=== PATIENT | female | born 1980 | race Caucasian/White ===

== ENCOUNTER → 2016-10-26 | Outpatient (CLI) | payer BC | END | disposition home or self-care (01) | LOC: CFH 09:05 | PROVIDERS: ATTEND Internal Medicine Cardiovascular Disease | DX: I08.1 Rheumatic disorders of both mitral and tricuspid valves (principal); Q23.0 Congenital stenosis of aortic valve; Z95.2 Presence of prosthetic heart valve | CPT/HCPCS: 93306 ==

== ENCOUNTER → 2018-07-13 | Outpatient (CLI) | payer BC, OTHER | END | disposition home or self-care (01) | LOC: CFH 07:18 | PROVIDERS: ATTEND Internal Medicine Cardiovascular Disease | DX: I08.1 Rheumatic disorders of both mitral and tricuspid valves (principal); Z87.74 Personal history of (corrected) congenital malformations of heart and circulatory system; Z95.4 Presence of other heart-valve replacement | CPT/HCPCS: 93306 ==

== ENCOUNTER 2018-09-14 15:24 | Outpatient (CLI) | payer BC, OTHER | END 2018-09-14 23:59 | disposition home or self-care (01) | LOC: CFH 15:24 | PROVIDERS: ATTEND Internal Medicine Cardiovascular Disease | DX: O00.01 Abdominal pregnancy with intrauterine pregnancy (principal); O09.519 Supervision of elderly primigravida, unspecified trimester; I08.1 Rheumatic disorders of both mitral and tricuspid valves; O99.419 Diseases of the circulatory system complicating pregnancy, unspecified trimester; Z3A.00 Weeks of gestation of pregnancy not specified | CPT/HCPCS: 93308 ==

== ENCOUNTER 2018-11-06 12:50 | Outpatient (CLI) | payer BC, OTHER | END 2018-11-06 23:59 | disposition home or self-care (01) | LOC: CFH 12:50 | PROVIDERS: ATTEND Internal Medicine Cardiovascular Disease | DX: O00.01 Abdominal pregnancy with intrauterine pregnancy (principal); O99.419 Diseases of the circulatory system complicating pregnancy, unspecified trimester; O09.519 Supervision of elderly primigravida, unspecified trimester; I51.7 Cardiomegaly; Q23.1 Congenital insufficiency of aortic valve; Z3A.00 Weeks of gestation of pregnancy not specified | CPT/HCPCS: 93306 ==

== ENCOUNTER 2019-09-10 13:25 | Outpatient (CLI) | payer BC, OTHER ==
[~2019-09-10 13:25] MED LIST: PROC10TA2 PO
== END 2019-09-10 23:59 | disposition home or self-care (01) ==
LOC: RAD 13:25
PROVIDERS: ATTEND Internal Medicine Cardiovascular Disease
DX: G45.9 Transient cerebral ischemic attack, unspecified (principal)
CPT/HCPCS: 70551

== ENCOUNTER 2020-02-11 18:08 | Emergency (ER) | payer BC, OTHER ==
[~2020-02-11] VITALS: Ht 180.3 cm; Wt 73.4 kg
[2020-02-11 20:48] LABS: ALBUMIN 4.1 g/dL (3.4-5.0); CALCIUM 9.3 mg/dL (8.5-10.1)
[2020-02-11 20:53] LABS: ALANINE AMINOTRANSFERASE 26 U/L (12-78); ALKALINE PHOSPHATASE 49 U/L (45-117); BILIRUBIN,TOTAL 0.3 mg/dL (0.2-1.0)
[2020-02-11 20:56] LABS: ANION GAP 4 mmol/L (5-15); CHLORIDE 107 mmol/L (98-107)
[2020-02-11 21:02] LABS: BASOPHILS % (AUTO) 1 % (0-1); EOSINOPHILS % (AUTO) 4 % (1-7); LYMPHOCYTES % (AUTO) 43 % (22-44); MEAN CORPUSCULAR HEMOGLOBIN 32.6 pg (27.0-34.8); MEAN PLATELET VOLUME 7.9 fL (7.4-10.4); MONOCYTES % (AUTO) 7 % (2-9); NEUTROPHILS % (AUTO) 46 % (42-75); PLATELET COUNT 299 x10^3/uL (130-400); RED CELL DISTRIBUTION WIDTH 12.6 % (9.6-15.2)
--- NOTE | 2020-02-11 21:07 | NUR ---
pt to room from lobby
[2020-02-11 21:26] LABS: INTERNATIONAL NORMALIZED RATIO 2.51 (0.93-1.1); PROTHROMBIN TIME 26.4 Seconds (9.6-11.5)
[2020-02-11 21:34] LABS: MD SCAN
--- NOTE | 2020-02-11 22:42 | NUR ---
THIS PT PRESENTS TO THE ER AFTER SEEING HER NEUROLOGIST TODAY AND WAS TOLD TO COME TO THE ER. PT STATES SHE HAS A HX OF MIGRAINES, RECENTLY CHANGED MEDICATIONS (APPROX 2 MONTHS AGO). PT HAS NEVER EXPERIENCED A HEMIPALEGIC MIGRAINE SO SEVERE THAT IT PRESENTS WITH STROKE LIKE SYMPTOMS. HOWEVER, ON TUESDAY SHE REPORTED APHASIA AND RIGHT SIDED UE NUMBNESS. ALL SYMPTOMS HAVE RESOLVED SINCE. PT PRESENTS WITHOUT COMPLAINTS, A&OX4. PT IMMEDIATELY PLACED ON CARDIAC, BP AND O2 MONITORS. [place]. VISITOR AT BEDSIDE.
[2020-02-11 22:58] VITALS: BP 95/56
== END 2020-02-11 23:00 | disposition home or self-care (01) ==
LOC: ED 21:38
DX: R20.2 Paresthesia of skin (principal); R20.9 Unspecified disturbances of skin sensation; H53.2 Diplopia; R51.9 Headache, unspecified; R94.31 Abnormal electrocardiogram [ECG] [EKG]; G43.909 Migraine, unspecified, not intractable, without status migrainosus; Z95.4 Presence of other heart-valve replacement
CPT/HCPCS: 36415; 70450; 80053; 84703; 85025; 85610; 93005; 99285